=== PATIENT | female | born 1945 | race Caucasian/White ===

== ENCOUNTER → 2021-01-21 | Outpatient (CLI) | payer MEDICARE ==
[~2021-01-21] MED LIST: LOSA100T14 PO
[2021-01-21 09:58] LABS: ALANINE AMINOTRANSFERASE 21 U/L (12-78); ALBUMIN 3.9 g/dL (3.4-5.0); ANION GAP 7 mmol/L (5-15); CALCIUM 9.2 mg/dL (8.5-10.1); CHLORIDE 100 mmol/L (98-107); CREATININE 0.62 mg/dL (0.55-1.02)
[2021-01-21 10:00] LABS: ALKALINE PHOSPHATASE 88 U/L (45-117); BILIRUBIN,TOTAL 0.6 mg/dL (0.2-1.0); TOTAL PROTEIN 7.7 g/dL (6.4-8.2)
== END | disposition home or self-care (01) ==
LOC: STAR 08:40
PROVIDERS: ATTEND Internal Medicine Geriatric Medicine
DX: Z01.818 Encounter for other preprocedural examination (principal); K62.5 Hemorrhage of anus and rectum; K63.5 Polyp of colon
CPT/HCPCS: 36415; 80053; 93005

== ENCOUNTER 2021-01-27 10:05 | Day surgery (SDC) | payer MEDICARE ==
[~2021-01-27] VITALS: Ht 162.6 cm; Wt 57.0 kg
[2021-01-27 10:48] VITALS: BP 172/101
[2021-01-27] MEDS ORDERED: CHLORHEXIDINE 15 ML UDC ONE (10:56)
[2021-01-27] MEDS ORDERED: LACTATED RINGERS 1,000 ML IV SCH (11:00)
[2021-01-27] MEDS ORDERED: CHLORHEXIDINE 15 ML UDC PO ONE (11:00)
[2021-01-27 11:23] VITALS: BP 167/90
[2021-01-27] MEDS ORDERED: LABETALOL 5MG/ML, 20ML ONE (12:42)
[2021-01-27] MEDS ORDERED: PROPOFOL 10 MG/ML, 20ML ONE (12:42)
== END 2021-01-27 14:15 | disposition home or self-care (01) ==
LOC: OUT 10:05
PROVIDERS: ATTEND Internal Medicine Geriatric Medicine
DX: D12.8 Benign neoplasm of rectum (principal); I10 Essential (primary) hypertension; Z79.899 Other long term (current) drug therapy
CPT/HCPCS: 45341; J2704; J7120